=== PATIENT | female | born 1940 | race Caucasian/White ===

== ENCOUNTER 2018-02-10 21:08 | Emergency (ER) | payer MEDICARE ==
[~2018-02-10] VITALS: Ht 157.5 cm; Wt 81.7 kg
[~2018-02-10 21:08] MED LIST: ADULT LOW DOSE81 MG PO; AMBIEN PO; APAP/CODEI12 MG/5 ML GT; ATIVAN0.5 MG PO; ATIVAN1 MG PO; AZITHROMYCIN 2250 MG PO; BENADRYL ALLERG25 MG; C-500500 MG PO; CELEXA 20 MG TA20 M1 PO; CITRATE OF MAG296 ML PO; DOXEPIN 50MG CA50 M1; DOXEPIN 50MG CA50 M1 PO; DOXEPIN 75 MG C75 M1 PO; DOXEPIN HCL100 MG PO; DUONEB 2.5-0.5 M3 ML; DUONEB 2.5-0.5 M3 ML INH; ESTER-C500 M1 PO; FENTANYL PATCH75 MCG TP; FLUOXETINE HCL40 MG PO; GABAPENTIN 100100 MG PO; HYDROCODONE-AP1 EAC6 PO; KEFLEX500 MG PO; LEVAQUIN 500 M500 M2; LEVAQUIN 500 M500 M2 PO; LEVOTHROID50 MCG PO; LEVOTHYROXIN0.025 MG PG; LEVOTHYROXINE0.05 MG PO; LEXAPRO20 MG; LIDOCAINE VISC100 M1 SWISH&SPIT; LOPRESSOR PO; LOSARTAN-HCTZ1 EAC1 PO; MACROBID 100 M100 M1 PO; MACRODANTIN100 MG; MUCINEX600 MG; MYCELEX15 GM; NORCO 5-325 TA1 EAC1 PO; NYSTATIN 1100000 U/M; NYSTATIN 1100000 U/M PO; PHENAZOPYRIDIN200 M2 PO; PREDNISONE 10 M10 MG; PREDNISONE 10 M10 MG PO; PROMETHAZINE/C118 ML PO; PROZAC 20 MG20 M1 PO; PYRIDIUM200 MG PO; VENLAFAXIN75 MG/1 T2; VITAMIN B-12500 MCG; VITAMIN D 5050000 I1 PO; VITAMIN D32000 UNIT PO; XANAX 0.25 MG0.25 MG PO; XANAX 0.5 MG0.5 M1 PO; [UNRECOGNIZED DRUG - REMARK] PO
[2018-02-10] MEDS ORDERED: HYDROCODONE-AP1 EAC6 PO (21:21)
[2018-02-10 21:57] LABS: ABSOLUTE EOSINOPHILS 0.3 thou/uL (0.0-0.7); ABSOLUTE LYMPHOCYTES 1.4 thou/uL (0.8-5.3); ABSOLUTE MONOCYTES 0.7 thou/uL (0.0-1.2); ABSOLUTE NEUTROPHILS 7.3 thou/uL (1.6-8.1); BASOPHILS 0.5 %; EOSINOPHILS 2.8 %; HEMATOCRIT 39.3 % (37.0-47.0); HEMOGLOBIN 13.3 gm/dL (12.0-15.0); LYMPHOCYTES 14.5 %; MCH 32.1 pg (26.0-34.0); MCHC 33.7 g/dL (28.0-37.0); MCV 95.1 fL (80.0-100.0); MONOCYTES 6.9 %; MPV 7.6 fl. (7.2-11.1); NUCLEATED RBCS 0 /100WBC; PLATELET COUNT* 251 thou/uL (150-400); POLYS 75.3 %; RBC 4.13 mil/uL (4.20-5.00); RDW-CV 12.7 % (10.5-14.5); WBC 9.7 thou/uL (4.0-11.0)
[2018-02-10 22:04] LABS: PROTIME 9.8 Seconds (9.20-11.50)
[2018-02-10 22:13] LABS: ANION GAP 7 mmol/L (7-16); BUN 16 mg/dL (7-18); CALCIUM 9.5 mg/dL (8.5-10.1); CHLORIDE 104 mmol/L (98-107); CO2 30 mmol/L (21-32); CREATININE 0.8 mg/dL (0.6-1.3); GLUCOSE 144 mg/dL (70-99); POTASSIUM 3.9 mmol/L (3.5-5.1); SODIUM 141 mmol/L (136-145)
[2018-02-10 22:21] LABS: ALBUMIN 3.6 g/dL (3.4-5.0); ALKALINE PHOSPHATASE 63 U/L (46-116); CK-MB MASS 1.1 ng/mL (<0.5-3.6); NT-PRO BRAIN NAT PEPTIDE 81 pg/mL (<300); SGOT 13 U/L (15-37); SGPT 24 U/L (30-65); TOTAL BILIRUBIN 0.2 mg/dL (<0.1-1.0); TOTAL PROTEIN 6.8 g/dL (6.4-8.2); TROPONIN-I LEVEL <0.06 ng/mL (<0.06)
[2018-02-10 22:47] LABS: INFLUENZA A ANTIGEN None Detected (None Detect); INFLUENZA B ANTIGEN None Detected (None Detect)
[2018-02-10] MEDS ORDERED: AMOXICILLIN 50500 MG PO (23:20)
[2018-02-10] MEDS ORDERED: PROAIR HFA8.5 GM INH (23:20)
[2018-02-10] MEDS ORDERED: PREDNISONE 20 M20 MG PO (23:20)
[2018-02-10 23:34] VITALS: BP 122/63
--- NOTE | 2018-02-11 09:57 | EKG ---
[place] [address] ELECTROCARDIOGRAM REPORT Name: TRENTON CONNER JO [id number] Admission: 02/10/18 Attend Phys: Discharge: 02/10/18 Date of : 44 Report #: [id number] THIS REPORT FOR: //name// [facility] ED Test Date: 2018-02-10 Test Time: 21:40:44 Pat Name: TRENTON CONNER Department: Room: Gender: F Gas Appliance Servicer: TYRONE Yeh : 1940 Requested By: Genaro Florez Order Number: [id number] MD: Abraham Kwon Measurements Intervals [place] Rate: 93 P: 70 ID: 162 QRS: 47 QRSD: 87 T: 244 QT: 379 QTc: 472 Interpretive Statements Sinus rhythm septal q waves Borderline repolarization abnormality Compared to ECG 06/14/2016 13:36:26 septal q waves noted Electronically Signed On 02-11-2018 9:57:37 CDT by Abraham Kwon [email or web address] <ELECTRONICALLY SIGNED> By: Abraham Kwon MD, [facility] 02/11/18 0957 39 39 Abraham Kwon MD, FACC /EPI
== END 2018-02-10 23:35 | disposition home or self-care (01) ==
LOC: M.ERS 21:08
PROVIDERS: Nurse Practitioner Psychiatric/Mental Health
DX: J44.1 Chronic obstructive pulmonary disease with (acute) exacerbation (principal); E03.9 Hypothyroidism, unspecified; I10 Essential (primary) hypertension; Z90.710 Acquired absence of both cervix and uterus; Z98.890 Other specified postprocedural states; Z87.891 Personal history of nicotine dependence

== ENCOUNTER 2018-04-12 19:51 | Emergency (ER) | payer MEDICARE ==
[~2018-04-12] VITALS: Ht 160 cm; Wt 79.4 kg
[~2018-04-12 19:51] MED LIST changes: +AMOXICILLIN 50500 MG PO; +PREDNISONE 20 M20 MG PO; +PROAIR HFA8.5 GM INH
[2018-04-12] MEDS ORDERED: VENTOLIN HFA 1818 GM INH (20:55)
[2018-04-12] MEDS ORDERED: PREDNISONE 20 M20 M1 PO (20:55)
[2018-04-12] MEDS ORDERED: ZPAK PO (20:55)
[2018-04-12 21:26] VITALS: BP 162/88
--- NOTE | 2018-04-13 11:46 | EKG ---
[place] [address] ELECTROCARDIOGRAM REPORT Name: TRENTON CONNER JO Room: [facility]#: [id number] Admission: 04/12/18 Attend Phys: Discharge: 04/12/18 Date of : 44 Report #: [id number] THIS REPORT FOR: //name// [facility] ED Test Date: 2018-04-12 Test Time: 19:58:08 Pat Name: TRENTON CONNER Department: Room: Gender: F Material Control Associate: MARIAM : 1940 Requested By: Rico Martinez Order Number: [id number] MD: Abraham Kwon Measurements Intervals [place] Rate: 82 P: 70 MA: 160 QRS: 53 QRSD: 93 T: 44 QT: 393 QTc: 459 Interpretive Statements Sinus rhythm Minimal ST depression, diffuse leads Baseline wander in lead(s) II Compared to ECG 02/10/2018 21:40:44 no change Electronically Signed On 04-13-2018 11:45:54 CDT by Abraham Kwon [email or web address] <ELECTRONICALLY SIGNED> By: Abraham Kwon MD, [facility] 04/13/18 1145 57 57 Abraham Kwon MD, FAC /EPI
== END 2018-04-12 21:29 | disposition home or self-care (01) ==
LOC: M.ERS 19:51
DX: J44.1 Chronic obstructive pulmonary disease with (acute) exacerbation (principal); J40 Bronchitis, not specified as acute or chronic; I10 Essential (primary) hypertension; E03.9 Hypothyroidism, unspecified; Z90.710 Acquired absence of both cervix and uterus; Z87.891 Personal history of nicotine dependence

== ENCOUNTER 2018-06-11 21:09 | Emergency (ER) | payer MEDICARE ==
[~2018-06-11] VITALS: Ht 160 cm; Wt 79.4 kg
[~2018-06-11 21:09] MED LIST changes: +PREDNISONE 20 M20 M1 PO; +VENTOLIN HFA 1818 GM INH; +ZPAK PO
[2018-06-11 21:55] LABS: ABSOLUTE EOSINOPHILS 0.2 thou/uL (0.0-0.7); ABSOLUTE LYMPHOCYTES 1.4 thou/uL (0.8-5.3); ABSOLUTE MONOCYTES 0.4 thou/uL (0.0-1.2); ABSOLUTE NEUTROPHILS 3.7 thou/uL (1.6-8.1); BASOPHILS 0.7 %; EOSINOPHILS 3.2 %; HEMATOCRIT 39.5 % (37.0-47.0); HEMOGLOBIN 13.4 gm/dL (12.0-15.0); LYMPHOCYTES 24.4 %; MCH 31.9 pg (26.0-34.0); MCHC 33.8 g/dL (28.0-37.0); MCV 94.5 fL (80.0-100.0); MONOCYTES 7.5 %; MPV 7.7 fl. (7.2-11.1); NUCLEATED RBCS 0 /100WBC; PLATELET COUNT* 273 thou/uL (150-400); POLYS 64.2 %; RBC 4.18 mil/uL (4.20-5.00); RDW-CV 12.7 % (10.5-14.5); WBC 5.7 thou/uL (4.0-11.0)
[2018-06-11 22:00] LABS: ANION GAP 7 mmol/L (7-16); BUN 13 mg/dL (7-18); CALCIUM 9.3 mg/dL (8.5-10.1); CHLORIDE 100 mmol/L (98-107); CO2 27 mmol/L (21-32); CREATININE 0.7 mg/dL (0.6-1.3); GLUCOSE 122 mg/dL (70-99); POTASSIUM 3.8 mmol/L (3.5-5.1); SODIUM 134 mmol/L (136-145)
[2018-06-11 22:07] LABS: ALBUMIN 4.1 g/dL (3.4-5.0); ALKALINE PHOSPHATASE 65 U/L (46-116); LIPASE 123 U/L (73-393); SGOT 15 U/L (15-37); SGPT 21 U/L (30-65); TOTAL BILIRUBIN 0.2 mg/dL (<0.1-1.0); TOTAL PROTEIN 7.1 g/dL (6.4-8.2); TROPONIN-I LEVEL <0.06 ng/mL (<0.06)
[2018-06-11] MEDS ORDERED: NORCO 5-325 TA1 EACH PO (22:27)
[2018-06-11] MEDS ORDERED: PREDNISONE50 MG PO (22:27)
[2018-06-11] MEDS ORDERED: FLEXERIL PO (22:27)
[2018-06-11 22:49] VITALS: BP 148/65
--- NOTE | 2018-06-12 10:51 | EKG ---
[place] [address] ELECTROCARDIOGRAM REPORT Name: TRENTON CONNER JO Room: [facility]#: [id number] Admission: 06/11/18 Attend Phys: Discharge: 06/11/18 Date of : 44 Report #: [id number] THIS REPORT FOR: //name// [facility] ED Test Date: 2018-06-11 Test Time: 21:17:31 Pat Name: TRENTON CONNER Department: Room: Gender: F Set Up Mechanic Coating Machines: KARI : 1940 Requested By: Kade Menezes Order Number: [id number] MD: Abraham Kwon Measurements Intervals [place] Rate: 91 P: 72 NM: 150 QRS: 55 QRSD: 91 T: QT: 303 QTc: 373 Interpretive Statements Sinus rhythm Probable left atrial enlargement Nonspecific repol abnormality, diffuse leads Compared to ECG 04/12/2018 19:58:08 no change Electronically Signed On 06-12-2018 10:50:59 CDT by Abraham Kwon [email or web address] <ELECTRONICALLY SIGNED> By: Abraham Kwon MD, [facility] 06/12/18 1050 16 16 Abraham Kwon MD, FACC /EPI
[2018-06-12] MEDS ORDERED: NORCO 5-325 TA1 EACH PO (14:40)
== END 2018-06-11 22:50 | disposition home or self-care (01) ==
LOC: M.ERS 21:09
PROVIDERS: Emergency Medicine Emergency Medical Services
DX: S46.812A Strain of other muscles, fascia and tendons at shoulder and upper arm level, left arm, initial encounter (principal); M54.12 Radiculopathy, cervical region; E03.9 Hypothyroidism, unspecified; I10 Essential (primary) hypertension; J44.9 Chronic obstructive pulmonary disease, unspecified; Z90.710 Acquired absence of both cervix and uterus; Z87.891 Personal history of nicotine dependence; X58.XXXA Exposure to other specified factors, initial encounter; Y93.89 Activity, other specified; Y92.89 Other specified places as the place of occurrence of the external cause; Y99.8 Other external cause status

== ENCOUNTER 2018-06-12 12:16 | Emergency (ER) | payer MEDICARE ==
[~2018-06-12] VITALS: Ht 160 cm; Wt 78.9 kg
[~2018-06-12 12:16] MED LIST changes: +FLEXERIL PO; +NORCO 5-325 TA1 EACH PO; +PREDNISONE50 MG PO
[2018-06-12] MEDS ORDERED: NORCO 5-325 TA1 EACH PO (14:40)
[2018-06-12 14:50] VITALS: BP 167/63
== END 2018-06-12 14:51 | disposition home or self-care (01) ==
LOC: M.ERS 12:16
DX: M54.2 Cervicalgia (principal); M25.512 Pain in left shoulder; E03.9 Hypothyroidism, unspecified; I10 Essential (primary) hypertension; J44.9 Chronic obstructive pulmonary disease, unspecified; Z87.891 Personal history of nicotine dependence; Z90.710 Acquired absence of both cervix and uterus

== ENCOUNTER 2018-06-14 11:52 | Emergency (ER) | payer MEDICARE ==
[~2018-06-14] VITALS: Ht 167.6 cm; Wt 90.7 kg
[2018-06-14] MEDS ORDERED: LIDOCAINE PAIN1 EACH INTRADERM (12:02)
[2018-06-14] MEDS ORDERED: VALIUM5 MG PO (13:17)
[2018-06-14 13:29] VITALS: BP 135/99
== END 2018-06-14 13:30 | disposition home or self-care (01) ==
LOC: M.ERS 11:52
DX: G89.29 Other chronic pain (principal); M25.512 Pain in left shoulder; I10 Essential (primary) hypertension; E03.9 Hypothyroidism, unspecified; J44.9 Chronic obstructive pulmonary disease, unspecified; Z90.710 Acquired absence of both cervix and uterus; Z98.890 Other specified postprocedural states; Z87.891 Personal history of nicotine dependence

== ENCOUNTER 2018-07-08 13:33 | Emergency (ER) | payer MEDICARE ==
[~2018-07-08] VITALS: Ht 160 cm; Wt 77.1 kg
[~2018-07-08 13:33] MED LIST changes: +LIDOCAINE PAIN1 EACH INTRADERM; +VALIUM5 MG PO
[2018-07-08 13:39] VITALS: BP 130/70
[2018-07-08] MEDS ORDERED: VALIUM5 MG PO (14:02)
== END 2018-07-08 14:14 | disposition home or self-care (01) ==
LOC: M.ERS 13:33
DX: G89.29 Other chronic pain (principal); M54.2 Cervicalgia; Z76.0 Encounter for issue of repeat prescription; J44.9 Chronic obstructive pulmonary disease, unspecified; E03.9 Hypothyroidism, unspecified; Z87.891 Personal history of nicotine dependence; Z90.710 Acquired absence of both cervix and uterus

== ENCOUNTER 2018-11-21 08:55 | Inpatient (IN) | payer MEDICARE ==
[~2018-11-21] VITALS: Ht 160 cm; Wt 78.5 kg
[2018-11-21 09:01] VITALS: BP 149/70
[2018-11-21 09:18] LABS: BE 2.3 mmol/L (-2 to +3); HCO3 26.1 mmol/L (22.0-26.0); PCO2 37.7 mmHg (35.0-45.0); PO2 70.6 mmHg (75.0-100.0); pH 7.458 (7.340-7.450)
[2018-11-21] MEDS ORDERED: NORCO 5-325 TA1 EACH PO (09:20)
[2018-11-21] MEDS ORDERED: MEDROLDOSEPACK PO (09:20)
[2018-11-21 09:25] LABS: ABSOLUTE LYMPHOCYTES 1.1 thou/uL (0.8-5.3); ABSOLUTE MONOCYTES 1.1 thou/uL (0.0-1.2); BASOPHILS 0.4 %; EOSINOPHILS 0.1 %; HEMATOCRIT 38.2 % (37.0-47.0); HEMOGLOBIN 12.9 gm/dL (12.0-15.0); MCH 31.9 pg (26.0-34.0); MCHC 33.7 g/dL (28.0-37.0); MCV 94.6 fL (80.0-100.0); MPV 7.6 fl. (7.2-11.1); NUCLEATED RBCS 0 /100WBC; PLATELET COUNT* 285 thou/uL (150-400); POLYS 79.5 %; RBC 4.04 mil/uL (4.20-5.00); RDW-CV 12.5 % (10.5-14.5); WBC 11.3 thou/uL (4.0-11.0)
[2018-11-21 09:44] LABS: APTT 27.5 Seconds (25.0-31.3); INR 0.9; PROTIME 9.6 Seconds (9.20-11.50)
[2018-11-21 09:51] LABS: ANION GAP 10 mmol/L (7-16); BUN 15 mg/dL (7-18); CALCIUM 8.3 mg/dL (8.5-10.1); CHLORIDE 101 mmol/L (98-107); CO2 27 mmol/L (21-32); CREATININE 0.8 mg/dL (0.6-1.3); GLUCOSE 107 mg/dL (70-99); SODIUM 138 mmol/L (136-145)
[2018-11-21 09:55] LABS: POTASSIUM 2.9 mmol/L (3.5-5.1)
[2018-11-21 09:56] LABS: ALBUMIN 3.7 g/dL (3.4-5.0); ALKALINE PHOSPHATASE 70 U/L (46-116); NT-PRO BRAIN NAT PEPTIDE 349 pg/mL (<300); SGOT 12 U/L (15-37); SGPT 17 U/L (30-65); TOTAL BILIRUBIN 0.4 mg/dL (<0.1-1.0); TOTAL PROTEIN 7.4 g/dL (6.4-8.2); TROPONIN-I LEVEL <0.06 ng/mL (<0.06)
[2018-11-21 10:05] LABS: INFLUENZA A ANTIGEN None Detected (None Detect); INFLUENZA B ANTIGEN None Detected (None Detect)
[2018-11-21 12:00] VITALS: BP 135/66
[2018-11-21 12:14] VITALS: BP 138/70
[2018-11-21 16:02] VITALS: BP 135/67
--- NOTE | 2018-11-21 17:37 | NUR ---
PATINET RESTING IN BED WITH 2L PER NASAL CAULA FOR SUPPLEMENTAL OXYGENTATION. LUNG SOUNDS COARSE AND WHEEZY. PATINET REPORTING EASE IN RESPIRATIONS. MED REC COMPLETD AND ORDERS RECEIVED FOR PATIENT CARE. UP AD ANDREA, AOX4. HOURLY ROUNDING COMPLETD FOR PATINET SAFETY.
[2018-11-21 20:00] VITALS: BP 142/71
[2018-11-22] VITALS: BP 142/70
[2018-11-22 04:00] VITALS: BP 154/79
[2018-11-22 05:25] LABS: HEMATOCRIT 37.2 % (37.0-47.0); HEMOGLOBIN 12.2 gm/dL (12.0-15.0); MCH 31.5 pg (26.0-34.0); MCHC 32.8 g/dL (28.0-37.0); MCV 95.8 fL (80.0-100.0); MPV 8.1 fl. (7.2-11.1); NUCLEATED RBCS 0 /100WBC; PLATELET COUNT* 292 thou/uL (150-400); RBC 3.88 mil/uL (4.20-5.00); RDW-CV 12.7 % (10.5-14.5); WBC 13.8 thou/uL (4.0-11.0)
--- NOTE | 2018-11-22 05:39 | NUR ---
ASSUMED CARE OF PT AFTER REPORT AT 1930. PT A&OX4. VSS. PHYSICAL ASSESSMENT COMPLETED AND CHARTED. PT ON O2 AT 2L NC WITH 93% O2 SAT. PT TRACING SR PVC ON TELE. PT UP ADLIB TO RESTROOM. DENIES ANY PAIN OR DISCOMFORT. PT RESTED WELL ON BED. HOURLY ROUNDING OBSERVED. HS REST & SAFETY GOALS ACHIEVED. CALL LIGHT WITHIN REACH. BED IN LOW POSITION.
[2018-11-22 06:01] LABS: CALCIUM 9.8 mg/dL (8.5-10.1); CREATININE 0.7 mg/dL (0.6-1.3); POTASSIUM 4.4 mmol/L (3.5-5.1)
[2018-11-22 06:05] LABS: BE 0.8 mmol/L (-2 to +3); HCO3 26.6 mmol/L (22.0-26.0); PO2 76.2 mmHg (75.0-100.0); pH 7.371 (7.340-7.450)
[2018-11-22 06:37] LABS: ABSOLUTE LYMPHOCYTES 0.6 thou/uL (0.8-5.3); ABSOLUTE MONOCYTES 0.8 thou/uL (0.0-1.2); ABSOLUTE NEUTROPHILS 12.4 thou/uL (1.6-8.1); ANISOCYTOSIS 1+; PLATELET ESTIMATE ADEQUATE; POIKILOCYTOSIS 1+
[2018-11-22 07:49] VITALS: BP 150/70
[2018-11-22 07:49] LABS: URINE BILIRUBIN NEGATIVE (Negative); URINE BLOOD NEGATIVE (Negative); URINE CLARITY CLEAR; URINE COLOR YELLOW; URINE GLUCOSE-RANDOM NEGATIVE (Negative); URINE KETONES NEGATIVE (Negative); URINE LEUKOCYTES 1+ (Negative); URINE NITRITE NEGATIVE (Negative); URINE PROTEIN NEGATIVE (Negative); URINE UROBILINOGEN 0.2 E.U./dl (0.2-1.0)
[2018-11-22 07:58] LABS: SQUAMOUS >10 Many /LPF (0-3)
[2018-11-22 07:59] LABS: MUCUS 0-3 Light strn/LPF (None Seen); URINE RBC None Seen /HPF (0-2); URINE WBC 0-5 Rare /HPF (0-5)
[2018-11-22 08:00] LABS: CASTS None Seen /LPF (None Seen); CRYSTALS None Seen /LPF (None Seen)
--- NOTE | 2018-11-22 11:17 | EKG ---
[place] [address] ELECTROCARDIOGRAM REPORT Name: TRENTON CONNER JO Room: [address] ADM IN M.R.#: [id number] Admission: 11/21/18 Attend Phys: Evangelist Vicente MD Discharge: Date of : 44 Report #: [id number] THIS REPORT FOR: //name// [facility] ED Test Date: 2018-11-21 Test Time: 09:07:12 Pat Name: TRENTNO CONNER Department: Room: [facility] Gender: F Cash Shortage Investigator: : 1940 Requested By: Anil High Order Number: [id number] MD: Jonathan Neri Measurements Intervals [place] Rate: 97 P: 70 AR: 147 QRS: 51 QRSD: 95 T: -71 QT: 306 QTc: 389 Interpretive Statements Sinus rhythm Probable left atrial enlargement Nonspecific repol abnormality, diffuse leads Compared to ECG 06/11/2018 21:17:31 No significant changes Electronically Signed On 11-22-2018 11:17:15 PRICING CONSULTANT by Jonathan Neri [email or web address] <ELECTRONICALLY SIGNED> By: Jonathan Neri MD, [facility] 11/22/18 1117 0907 0907 Jonathan Neri MD, [facility] /EPI
--- NOTE | 2018-11-22 15:49 | NUR ---
PATIENT RESTING IN RROM. 2L PER NASAL CANULA FOR SUPPLEMENTAL OXYGENATION. LUNG SOUNDS COARSE AND WHEEZY. PATIENT IS AOX4 AND APPROPRIATE. HOURLY ROUNDING COMPLETD FOR PATIENT SAFETY AND PATIENT IS PROGRESSING TOWARDS GOALS.
[2018-11-22 16:00] VITALS: BP 141/66
[2018-11-22 20:00] VITALS: BP 153/79
[2018-11-23] VITALS: BP 141/64
[2018-11-23 04:00] VITALS: BP 123/66
--- NOTE | 2018-11-23 04:22 | NUR ---
ASSUMED CARE OF PT AFTER REPORT AT 1930. PT A&OX4. VSS. PHYSICAL ASSESSMENT COMPLETED AND CHARTED. PT ON RA WITH 97% O2 SAT. PT TRACING SR/ST ON TELE. PT UP ADLIB TO RESTROOM. DENIES ANY PAIN OR DISCOMFORT. HOURLY ROUNDING OBSERVED. CALL LIGHT WITHIN REACH.
[2018-11-23 04:43] LABS: ABSOLUTE LYMPHOCYTES 0.8 thou/uL (0.8-5.3); ABSOLUTE MONOCYTES 0.7 thou/uL (0.0-1.2); ABSOLUTE NEUTROPHILS 11.9 thou/uL (1.6-8.1); BASOPHILS 0.2 %; HEMATOCRIT 35.2 % (37.0-47.0); HEMOGLOBIN 11.7 gm/dL (12.0-15.0); LYMPHOCYTES 6.1 %; MCH 31.3 pg (26.0-34.0); MCHC 33.1 g/dL (28.0-37.0); MCV 94.5 fL (80.0-100.0); MONOCYTES 5.6 %; MPV 7.5 fl. (7.2-11.1); NUCLEATED RBCS 0 /100WBC; PLATELET COUNT* 323 thou/uL (150-400); POLYS 88.1 %; RBC 3.73 mil/uL (4.20-5.00); RDW-CV 12.6 % (10.5-14.5); WBC 13.5 thou/uL (4.0-11.0)
[2018-11-23 05:37] LABS: ALBUMIN 3.3 g/dL (3.4-5.0); CALCIUM 9.8 mg/dL (8.5-10.1); CREATININE 0.8 mg/dL (0.6-1.3); POTASSIUM 3.6 mmol/L (3.5-5.1); TOTAL BILIRUBIN 0.1 mg/dL (<0.1-1.0); TOTAL PROTEIN 6.9 g/dL (6.4-8.2)
[2018-11-23 08:15] VITALS: BP 150/72
[2018-11-23 12:00] VITALS: BP 143/64
--- NOTE | 2018-11-23 13:11 | NUR ---
Pt is A&O. Resides at home with her . Normally independent. No DME. Hx of HH, does not recall the name of the agency. No hx of skilled. Goal is home at dc. Following for home o2 needs. Supportive family that is involved in POC.
[2018-11-23 20:00] VITALS: BP 159/78
[2018-11-24 04:00] VITALS: BP 158/69
--- NOTE | 2018-11-24 04:30 | NUR ---
ASSUMED CARE OF PT AFTER REPORT AT 1930. PT A&OX4. VSS. PHYSICAL ASSESSMENT COMPLETED AND CHARTED. PT ON RA WITH 94% O2 SAT. PT ON MEDSURG STATUS. PT UPADLIB TO RESTROOM. DENIES PAIN OR SOA. PT RESTED WELL ON BED. HOURLY ROUNDING OBSERVED. CALL LIGHT WITHIN REACH. BED IN LOW POSITION.
[2018-11-24 07:35] VITALS: BP 105/79
--- NOTE | 2018-11-24 09:10 | NUR ---
PT LOST IV ACCESS THIS MORNING. DR SANTIAGO NOTIFIED AND WILL WAIT TO SEE IF SHE NEEDS NEW ACCESS OBTAINED OR IF HER MEDICATIONS CAN BE CHANGED. WILL CONTINUE TO ASSESS AND MONITOR
[2018-11-24] MEDS ORDERED: PROTONIX40 M2 PO (10:36)
[2018-11-24 10:39] VITALS: BP 105/79
--- NOTE | 2018-11-24 10:57 | NUR ---
PT AND FAMILY VERBALIZED UNDERSTANDING TO DC INSTRUCTIONS AT THIS TIME. VSS AND NO C/O PAIN OR SOA AT THIS TIME. PT PROVIDED WITH 4 RX AT TIME OF DC. PT TO BE TAKEN OUT OF HOSPITAL WITH HOSPITAL STAFF VIA WC AT THIS TIME.
== END 2018-11-24 10:57 | disposition home or self-care (01) | DRG 177 ==
LOC: M.ERS 08:55 → M.TBA-ER 10:11 → M.2W 10:11
PROVIDERS: Emergency Medicine; ADMIT Internal Medicine
DX: J15.6 Pneumonia due to other Gram-negative bacteria (principal); J96.01 Acute respiratory failure with hypoxia; J44.0 Chronic obstructive pulmonary disease with (acute) lower respiratory infection; J44.1 Chronic obstructive pulmonary disease with (acute) exacerbation; R65.10 Systemic inflammatory response syndrome (SIRS) of non-infectious origin without acute organ dysfunction; I10 Essential (primary) hypertension; E03.9 Hypothyroidism, unspecified; J98.01 Acute bronchospasm; E87.6 Hypokalemia; Z98.891 History of uterine scar from previous surgery; Z90.710 Acquired absence of both cervix and uterus; Z87.891 Personal history of nicotine dependence; Z79.899 Other long term (current) drug therapy; Z82.49 Family history of ischemic heart disease and other diseases of the circulatory system

== ENCOUNTER 2018-12-08 22:12 | Inpatient (IN) | payer MEDICARE ==
[~2018-12-08] VITALS: Ht 160 cm; Wt 77.4 kg
[~2018-12-08 22:12] MED LIST changes: +MEDROLDOSEPACK PO; +PROTONIX40 M2 PO
[2018-12-08 22:18] VITALS: BP 178/84
[2018-12-08] MEDS ORDERED: BACTRIM DS TAB1 EACH PO (22:23)
[2018-12-08 22:44] LABS: ABSOLUTE BASOPHILS 0.1 thou/uL (0.0-0.2); ABSOLUTE EOSINOPHILS 0.1 thou/uL (0.0-0.7); ABSOLUTE LYMPHOCYTES 1.2 thou/uL (0.8-5.3); ABSOLUTE MONOCYTES 0.6 thou/uL (0.0-1.2); ABSOLUTE NEUTROPHILS 5.2 thou/uL (1.6-8.1); BASOPHILS 1.4 %; EOSINOPHILS 1.7 %; HEMATOCRIT 38.9 % (37.0-47.0); LYMPHOCYTES 16.1 %; MCH 31.7 pg (26.0-34.0); MCHC 33.6 g/dL (28.0-37.0); MCV 94.4 fL (80.0-100.0); MONOCYTES 8.8 %; MPV 7.8 fl. (7.2-11.1); NUCLEATED RBCS 0 /100WBC; PLATELET COUNT* 314 thou/uL (150-400); RBC 4.12 mil/uL (4.20-5.00); RDW-CV 12.8 % (10.5-14.5); WBC 7.2 thou/uL (4.0-11.0)
[2018-12-08 22:53] LABS: CALCIUM 9.6 mg/dL (8.5-10.1); POTASSIUM 4.1 mmol/L (3.5-5.1)
[2018-12-08 22:56] LABS: INR 0.9; PROTIME 9.4 Seconds (9.20-11.50)
[2018-12-08 23:03] LABS: ALBUMIN 3.9 g/dL (3.4-5.0); TOTAL BILIRUBIN 0.3 mg/dL (<0.1-1.0); TOTAL PROTEIN 7.4 g/dL (6.4-8.2); TROPONIN-I LEVEL 0.18 ng/mL (<0.06)
[2018-12-08 23:12] LABS: BE 0.5 mmol/L (-2 to +3); PCO2 26.8 mmHg (35.0-45.0); PO2 76.5 mmHg (75.0-100.0); pH 7.531 (7.340-7.450)
[2018-12-09] VITALS (20 sets, daily range): BP systolic 116–162; BP diastolic 54–86
[2018-12-09 07:11] LABS: URINE BILIRUBIN NEGATIVE (Negative); URINE BLOOD NEGATIVE (Negative); URINE CLARITY CLEAR; URINE COLOR YELLOW; URINE GLUCOSE-RANDOM NEGATIVE (Negative); URINE KETONES NEGATIVE (Negative); URINE LEUKOCYTES-REFLEX NEGATIVE (Negative); URINE NITRITE-REFLEX NEGATIVE (Negative); URINE PROTEIN NEGATIVE (Negative); URINE UROBILINOGEN 0.2 E.U./dl (0.2-1.0)
--- NOTE | 2018-12-09 18:05 | EKG ---
[place] [address] ELECTROCARDIOGRAM REPORT Name: UBALDOTRENTON Room: [address] ADM IN M.R.#: [id number] Admission: 12/09/18 Attend Phys: Evangelist Vicente MD Discharge: Date of : 44 Report #: [id number] THIS REPORT FOR: //name// [facility] ED Test Date: 2018-12-08 Test Time: 22:18:02 Pat Name: TRENTON CONNER Department: Room: [facility] Gender: F Sales Order Processor: Ruba GRAF : 1940 Requested By: Karie Jones Order Number: [id number] MD: Reymundo Franz Measurements Intervals [place] Rate: 93 P: 76 CT: 148 QRS: 44 QRSD: 96 T: 78 QT: 366 QTc: 456 Interpretive Statements Sinus rhythm Repol abnrm suggests ischemia, lateral leads Baseline wander in lead(s) V4 Compared to ECG 11/21/2018 09:07:12 Possible ischemia now present Electronically Signed On 12-09-2018 18:05:37 FIELD WORKER by Reymundo Franz [email or web address] <ELECTRONICALLY SIGNED> By: Reymundo Franz MD, FACC 12/09/18 1805 2218 2218 Reymundo Franz MD, [facility] /EPI
--- NOTE | 2018-12-09 18:06 | EKG ---
[place] [address] ELECTROCARDIOGRAM REPORT Name: UBALDOLACEY Room: [address] ADM IN M.R.#: [id number] Admission: 12/09/18 Attend Phys: Evangelist Vicente MD Discharge: Date of : 44 Report #: [id number] THIS REPORT FOR: //name// [facility] ED Test Date: 2018-12-09 Test Time: 01:28:14 Pat Name: TRENTON CONNER Department: Room: [address] Gender: F Information Assurance: LUCIA : 1940 Requested By: Karie Jones Order Number: [id number] MD: Reymundo Franz Measurements Intervals [place] Rate: 93 P: 52 UT: 137 QRS: 37 QRSD: 89 T: -30 QT: 351 QTc: 437 Interpretive Statements Sinus tachycardia Multiple premature complexes, vent & supraven Borderline repolarization abnormality Compared to ECG 11/21/2018 09:07:12 Sinus rhythm no longer present Electronically Signed On 12-09-2018 18:05:57 CORE WINDER MACHINE OPERATOR by Reymundo Franz [email or web address] <ELECTRONICALLY SIGNED> By: Reymundo Franz MD, FACC 12/09/18 1805 0128 0128 Reymundo Franz MD, FAC /EPI
[2018-12-10 04:00] VITALS: BP 127/64
[2018-12-10 05:21] LABS: HEMATOCRIT 33.9 % (37.0-47.0); HEMOGLOBIN 11.4 gm/dL (12.0-15.0); MCH 32.3 pg (26.0-34.0); MCHC 33.6 g/dL (28.0-37.0); MPV 8.1 fl. (7.2-11.1); RBC 3.53 mil/uL (4.20-5.00); WBC 6.6 thou/uL (4.0-11.0)
[2018-12-10 05:36] LABS: ALBUMIN 3.3 g/dL (3.4-5.0); ALKALINE PHOSPHATASE 51 U/L (46-116); ANION GAP 13 mmol/L (7-16); BUN 11 mg/dL (7-18); CALCIUM 9.3 mg/dL (8.5-10.1); CHLORIDE 102 mmol/L (98-107); CHOLESTEROL 264 mg/dL (<200); CO2 22 mmol/L (21-32); CREATININE 0.9 mg/dL (0.6-1.3); GLUCOSE 195 mg/dL (70-99); HDL CHOLESTEROL 81 mg/dL (>40); LDL CHOLESTEROL 167 mg/dL (<100); POTASSIUM 3.6 mmol/L (3.5-5.1); SGOT 29 U/L (15-37); SGPT 23 U/L (30-65); SODIUM 137 mmol/L (136-145); TC:HDL 3.3 Ratio (Not establshd); TOTAL BILIRUBIN 0.3 mg/dL (<0.1-1.0); TOTAL PROTEIN 6.7 g/dL (6.4-8.2); TRIGLYCERIDE 83 mg/dL (<150); VLDL 17 mg/dL (<40)
[2018-12-10 05:41] LABS: SERUM ASSESSMENT Clear
[2018-12-10 05:42] LABS: TROPONIN-I LEVEL 2.03 ng/mL (<0.06)
[2018-12-10 08:20] VITALS: BP 142/62
[2018-12-10 08:50] VITALS: BP 142/62
--- NOTE | 2018-12-10 10:24 | EKG ---
[place] [address] ELECTROCARDIOGRAM REPORT Name: UBALDOTRENTON Room: [address] ADM IN M.R.#: [id number] Admission: 12/09/18 Attend Phys: Evangelist Vicente MD Discharge: Date of : 44 Report #: [id number] THIS REPORT FOR: //name// [facility] Test Date: 2018-12-10 Test Time: 03:21:58 Pat Name: TRENTON CONNER Department: Room: [address] Gender: F Hobbies And Crafts Sales Representative: NARCISO : 1940 Requested By: Jonathan Neri Order Number: [id number] MD: Kiko Vaughn Measurements Intervals [place] Rate: 103 P: 69 KS: 156 QRS: 44 QRSD: 92 T: -84 QT: 374 QTc: 490 Interpretive Statements Sinus tachycardia Borderline repol abnormality, diffuse leads Borderline prolonged QT interval Compared to ECG 12/09/2018 01:28:14 No significant changes Electronically Signed On 12-10-2018 10:24:25 SENIOR INSTRUMENTATION ENGINEER by Kiko Vaughn [email or web address] <ELECTRONICALLY SIGNED> By: Kiko Vaughn MD, FACC 12/10/18 1024 0321 0321 Kiko Vaughn MD, [facility] /EPI
[2018-12-10] MEDS ORDERED: NITROGLYCERIN0.4 MG SUBLING (11:17)
[2018-12-10] MEDS ORDERED: BRILINTA90 MG PO (11:17)
[2018-12-10] MEDS ORDERED: LIPITOR 20 MG T20 M1 PO (11:17)
[2018-12-10] MEDS ORDERED: CARVEDILOL3.125 MG PO (11:17)
[2018-12-10] MEDS ORDERED: ASPIR 8181 MG PO (11:17)
[2018-12-10 11:55] VITALS: BP 142/62
[2018-12-10 13:03] VITALS: BP 142/62
[2018-12-10 13:10] VITALS: BP 142/62
--- NOTE | 2018-12-10 13:48 | CARD ---
[address] [address] CARDIAC CATH REPORT Name: UBALDOTRENTON CHRISTY JO Room: [address] IN M.R.#: [id number] Admission: 12/09/18 Attend Phys: Evangelist Vicente MD Discharge: 12/10/18 Date of : 44 Report #: [id number] THIS REPORT FOR: //name// APPROVED REPORT Study performed: 12/09/2018 15:22:35 Patient Details The patient is a 78 year-old female Event Personnel Jonathan Neri Washroom Attendant, Adrienne Chamberlain RN Sprinkling System Irrigator, Ayan Rm (R) Scrub, Hemanth Garland Scrub Procedures Performed Heart catheterization selective coronary artery arteriography and percutaneous coronary intervention to the right coronary artery Indication Non-STEMI Risk Factors Hypercholesterolemia, Hypertension Admission/Lab Medications/Medications given during procedure Aspirin, Platelet Aff. Inhib. Procedure Narrative The patient was brought electively to the Cardiac Catheterization Laboratory and was prepped and draped in a sterile manner. The right femoral was infiltrated with 2% Lidocaine subcutaneous anesthesia. A 6fr Ultimum Sheath sheath was inserted into the . Coronary angiography was performed using coronary diagnostic catheters. The right coronary system was accessed and visualized with a JL4 catheter. The left coronary system was accessed and visualized with a JR4 catheter. The left ventricle was accessed and visualized with a Straight PIG catheter. Left ventricular/Aortic Valve gradient assessed via catheter pullback. Pre-demployment femoral angiogram was performed . Closure device was deployed with a 6 Fr Angioseal. The patient tolerated the procedure well and there were no complications associated with the procedure. There was no hematoma. Intraoperative Conscious Sedation Fentanyl 100 mcg Vers[place] 4.0 [place] [address] CARDIAC CATH REPORT Name: TRENTON CONNER JO Room: [address]#: [id number] Admission: 12/09/18 Attend Phys: Evangelist Vicente MD Discharge: 12/10/18 Date of : 42 Report #: [id number] Fluoro Time: 27.7 minutes Dose: DAP [id number] cGycm2 117 mGy Contrast Type and Amount: Isovue 400 ml Coronary Angiography The patient's coronary anatomy is co- dominant. Diagnostic Cath Left Main 0% narrowing LAD 30% proximal LAD narrowing Circumflex 20% mid circumflex narrowing Right Coronary 90% narrowing of the midportion of this codominant right coronary artery with local thrombus at the site Left Ventriculography Left Ventriculography was not performed. IVUS Intravascular Ultrasound was performed on the mid right coronary artery vessel. Hemodynamics The aortic pressure is 169/71 mmHg with a mean of 94 mmHg. The left ventricular pressure is 161/5 mmHg with a mean of mmHg. The left ventricular end diastolic pressure is 15 mmHg. There was no gradient across the aortic valve upon pullback. PCI Technique Lesion Anticoagulation was achieved with Heparin. Patient was preloaded with Heparin IA 8000 units. Percutaneous coronary intervention was performed on the mid right coronary artery. The lesion stenosis prior to intervention was 90% with YOLIS 2-3 flow. A 6FR 3DRC SH Guide Catheter was used to engage the ostium. A [place]: PinkUP Flex 300cm Interventional Guidewire was used to cross the lesion. BALLOON DILATION A Balloon catheter Mini Trek RX 1.5 X 12 was inserted and inflated up to 14.00atm for 9seconds. STENT DEPLOYMENT A stent Tez RX Stent 2.0X12mm, 2.0x8 tez was inserted and inflated up to 14.00atm for 14seconds. Final angiography reveals 0 % stenosis with [place] 3 [place] [address] CARDIAC CATH REPORT Name: TRENTON CONNER Room: [address]#: [id number] Admission: 12/09/18 Attend Phys: Evangelist Vicente MD Discharge: 12/10/18 Date of : 44 Report #: [id number] PCI Technique Lesion Percutaneous coronary intervention was performed on the mid right coronary artery. STENT DEPLOYMENT A drug-eluting stent Tez RX Stent 2.0X8mm was inserted and inflated up to 12.00atm for 7seconds. Conclusion #1 coronary artery disease characterized by the following: A 30% mid LAD narrowing B 20% narrowing of the midportion of the codominant circumflex C modest sized codominant right coronary with 90% mid vessel stenosis and local thrombus at the site #2 moderate systemic systolic hypertension #3 successful percutaneous coronary intervention with deployment sequential drug-eluting stents at the site of 90% mid right coronary stenosis with 0% residual narrowing no residual thrombus and YOLIS-3 flow to the distal vessel Recommendations Cardiac Risk Reduction Program Aggressive Medical Therapy Medications Administered Aspirin (any) Ticagrelor Diagnostic Cath Approved by: Jonathan Neri MD Date/Time: 12/10/2018 13:47:06 <ELECTRONICALLY SIGNED> By: Jonathan Neri MD, [facility] 12/10/18 1347 1347 1347Jonathan Neri MD, FACC /INF
== END 2018-12-10 13:40 | disposition home or self-care (01) | DRG 247 ==
LOC: M.ERS 22:12 → M.TBA-ER 12-09 00:51 → M.2W 12-09 00:51
PROVIDERS: Internal Medicine; Personal Emergency Response Attendant; ADMIT Internal Medicine
PROC: 4A023N7 Measurement of Cardiac Sampling and Pressure, Left Heart, Percutaneous Approach (ICD-10-PCS; principal; 2018-12-09)
PROC: B41JYZZ Fluoroscopy of Other Lower Arteries using Other Contrast (ICD-10-PCS; principal; 2018-12-09)
PROC: 027034Z Dilation of Coronary Artery, One Artery with Drug-eluting Intraluminal Device, Percutaneous Approach (ICD-10-PCS; principal; 2018-12-09)
PROC: B211YZZ Fluoroscopy of Multiple Coronary Arteries using Other Contrast (ICD-10-PCS; principal; 2018-12-09)
DX: I21.4 Non-ST elevation (NSTEMI) myocardial infarction (principal); E03.9 Hypothyroidism, unspecified; I10 Essential (primary) hypertension; R73.9 Hyperglycemia, unspecified; E78.5 Hyperlipidemia, unspecified; J44.9 Chronic obstructive pulmonary disease, unspecified; Z87.891 Personal history of nicotine dependence; Z82.49 Family history of ischemic heart disease and other diseases of the circulatory system; Z90.710 Acquired absence of both cervix and uterus; Z79.899 Other long term (current) drug therapy

== ENCOUNTER 2019-03-13 13:13 | Observation (INO) | payer MEDICARE ==
[~2019-03-13] VITALS: Ht 160 cm; Wt 79.4 kg
[~2019-03-13 13:13] MED LIST changes: +ASPIR 8181 MG PO; +BACTRIM DS TAB1 EACH PO; +BRILINTA90 MG PO; +CARVEDILOL3.125 MG PO; +LIPITOR 20 MG T20 M1 PO; +NITROGLYCERIN0.4 MG SUBLING; +PROTONIX40 M1 PO; +SINGULAIR 10 MG10 M1 PO
[2019-03-13 13:15] VITALS: BP 105/56
[2019-03-13] MEDS ORDERED: PLAVIX 75 MG TA75 M1 PO (13:22)
[2019-03-13 13:32] LABS: ABSOLUTE BASOPHILS 0.1 thou/uL (0.0-0.2); ABSOLUTE EOSINOPHILS 0.3 thou/uL (0.0-0.7); ABSOLUTE LYMPHOCYTES 1.2 thou/uL (0.8-5.3); ABSOLUTE MONOCYTES 0.5 thou/uL (0.0-1.2); ABSOLUTE NEUTROPHILS 3.8 thou/uL (1.6-8.1); BASOPHILS 1.2 %; EOSINOPHILS 5.2 %; HEMOGLOBIN 10.4 gm/dL (12.0-15.0); LYMPHOCYTES 21.2 %; MCH 30.4 pg (26.0-34.0); MCHC 33.4 g/dL (28.0-37.0); MCV 90.9 fL (80.0-100.0); MONOCYTES 8.2 %; MPV 8.1 fl. (7.2-11.1); NUCLEATED RBCS 0 /100WBC; PLATELET COUNT* 312 thou/uL (150-400); POLYS 64.2 %; RBC 3.42 mil/uL (4.20-5.00); WBC 5.9 thou/uL (4.0-11.0)
[2019-03-13 13:45] LABS: APTT 26.1 Seconds (25.0-31.3); PROTIME 10.3 Seconds (9.20-11.50)
[2019-03-13 13:53] LABS: ANION GAP 10 mmol/L (7-16); BUN 18 mg/dL (7-18); CALCIUM 8.6 mg/dL (8.5-10.1); CHLORIDE 101 mmol/L (98-107); CO2 26 mmol/L (21-32); CREATININE 0.8 mg/dL (0.6-1.3); GLUCOSE 121 mg/dL (70-99); POTASSIUM 4.1 mmol/L (3.5-5.1); SODIUM 137 mmol/L (136-145); TROPONIN-I LEVEL <0.06 ng/mL (<0.06)
[2019-03-13 13:56] LABS: ALBUMIN 3.6 g/dL (3.4-5.0); ALKALINE PHOSPHATASE 71 U/L (46-116); LIPASE 154 U/L (73-393); MAGNESIUM 1.8 mg/dL (1.8-2.4); NT-PRO BRAIN NAT PEPTIDE 110 pg/mL (<300); SGOT 42 U/L (15-37); SGPT 30 U/L (30-65); TOTAL BILIRUBIN 0.3 mg/dL (<0.1-1.0); TOTAL PROTEIN 6.5 g/dL (6.4-8.2)
[2019-03-13 16:05] VITALS: BP 105/56
[2019-03-13 16:30] VITALS: BP 129/58
[2019-03-13 21:30] VITALS: BP 104/63; BP 132/64
[2019-03-14 00:12] VITALS: BP 88/36
[2019-03-14 00:58] VITALS: BP 124/62
[2019-03-14 04:00] VITALS: BP 120/54
[2019-03-14 05:18] LABS: CHOLESTEROL 160 mg/dL (<200); HDL CHOLESTEROL 66 mg/dL (>40); LDL CHOLESTEROL 77 mg/dL (<100); TC:HDL 2.4 Ratio (Not establshd); TRIGLYCERIDE 86 mg/dL (<150); VLDL 17 mg/dL (<40)
[2019-03-14 06:02] LABS: SERUM ASSESSMENT CLEAR
[2019-03-14] MEDS ORDERED: PEPCID20 MG PO (09:35)
[2019-03-14 11:34] VITALS: BP 140/59
--- NOTE | 2019-03-14 12:06 | EKG ---
[place] [address] ELECTROCARDIOGRAM REPORT Name: TRENTON CONNER JO Room: [address] MR.#: [id number] Admission: 03/13/19 Attend Phys: Bruce Nova MD Discharge: 03/14/19 Date of : 44 Report #: [id number] THIS REPORT FOR: //name// [facility] ED Test Date: 2019-03-13 Test Time: 13:16:31 Pat Name: TRENTON CONNER Department: Room: [facility] Gender: F Training Mgr: FLORIAN : 1940 Requested By: Rico Martinez Order Number: [id number] MD: Reymundo Franz Measurements Intervals [place] Rate: 81 P: 42 ID: 139 QRS: 25 QRSD: 142 T: 16 QT: 402 QTc: 467 Interpretive Statements Sinus rhythm Right bundle branch block Compared to ECG 01/14/2019 15:48:20 Right bundle-branch block now present Electronically Signed On 03-14-2019 12:06:51 CDT by Reymundo Franz [email or web address] <ELECTRONICALLY SIGNED> By: Reymundo Franz MD, FAC 03/14/19 1206 1316 1316 Reymundo Franz MD, [facility] /EPI
--- NOTE | 2019-03-15 08:58 | CON ---
[address] [address] CONSULTATION Name: TRENTON CONNER Room: [address] Marcell Cason#: [id number] Admission: 03/13/19 Attend Phys: Bruce Nova MD Discharge: 03/14/19 Date of : 42 Report #: [id number] THIS REPORT FOR: //name// CC: Bruce Castillo INDICATION: Chest pain. HISTORY OF PRESENT ILLNESS: The patient is a very pleasant 79-year-old white female with history of percutaneous coronary intervention to the right coronary artery in November of this year in the setting of a non-ST elevation myocardial infarction. At that time, she was found to have an 80% stenosis in the right coronary with no other hemodynamically significant stenoses noted. She had normal LV systolic function. Her post-intervention course has been relatively unremarkable. Yesterday, she had some midsternal chest discomfort. After 3 nitroglycerins, the pain had resolved. The patient presented to Emergency Room for further evaluation. EKG did not show any acute ST segment abnormalities at this time. The patient has been watched overnight in the hospital. Troponins are negative x 3 sets. She is no longer having discomfort at this time. There was no radiation of the discomfort. PAST MEDICAL HISTORY: 1. Coronary artery disease, status post percutaneous coronary intervention as outlined above. 2. Chronic obstructive pulmonary disease. 3. Hypercholesterolemia. 4. Hypertension. 5. Hypothyroidism. 6. remotely. 7. Colon Surgery remotely. 8. Hysterectomy. 9. Tonsillectomy. FAMILY HISTORY: Noncontributory. SOCIAL HISTORY: The patient quit smoking remotely. She does not drink alcohol. CURRENT MEDICATIONS: Aspirin 81 mg daily, atorvastatin 20 mg daily, carvedilol 3.125 mg b.i.d., clopidogrel 75 mg daily, [place] 5/325 q. 8 hours p.r.n., Singulair 10 mg at night, Nitrostat p.r.n., Protonix 40 mg daily. ALLERGIES: None documented. REVIEW OF SYSTEMS: A 14-point review of systems is positive for pneumonia remotely, chest discomfort, dyspnea, anxiety, and she wears glasses. Otherwise, 14-point review of [place] [address] CONSULTATION Name: TRENTON CONNER JO [address] [id number] Admission: 03/13/19 Attend Phys: Bruce Nova MD Discharge: 03/14/19 Date of : 44 Report #: [id number] PHYSICAL EXAMINATION: VITAL SIGNS: Stable. Blood pressure 140/59, pulse 70 and regular. GENERAL: This is a pleasant lady in no distress. Mood and affect appropriate. HEENT: The patient is wearing glasses. Extraocular muscles intact. Mucous membranes are moist. NECK: Shows no jugular venous distention. There are no carotid bruits. CHEST: Reveals clear lung rausch. I do not appreciate wheezes or rales. CARDIAC: Reveals a regular rhythm with no gallop or murmur. ABDOMEN: Reveals normal bowel sounds. The abdomen is soft, nontender. EXTREMITIES: Shows no edema. SKIN: Warm and dry. IMPRESSION AND RECOMMENDATIONS: 1. Chest discomfort in a patient with history of coronary artery disease. The patient has ruled out for myocardial infarction. EKG is stable. I believe she is stable for discharge to home. Continue dual antiplatelet therapy as outlined above. 2. Coronary artery disease, presently stable. She had intervention in November of this year. We will continue dual antiplatelet therapy including aspirin and Plavix at this time. 3. Hypertension. Blood pressure adequately controlled on current cardiac regimen. 4. Hyperlipidemia. Continue atorvastatin at current dose. <ELECTRONICALLY SIGNED> By: Reymundo Franz MD, FACC 03/15/19 0858 1118 0130Reymundo Franz MD, FACC /nt
== END 2019-03-14 11:55 | disposition home or self-care (01) ==
LOC: M.ERS 13:13 → M.TBA-ER 14:26 → M.2W 16:24
PROVIDERS: Family Medicine; ADMIT Internal Medicine
DX: I25.10 Atherosclerotic heart disease of native coronary artery without angina pectoris (principal); K21.9 Gastro-esophageal reflux disease without esophagitis; K44.9 Diaphragmatic hernia without obstruction or gangrene; J44.9 Chronic obstructive pulmonary disease, unspecified; R73.03 Prediabetes; Z79.82 Long term (current) use of aspirin; Z79.899 Other long term (current) drug therapy; E03.9 Hypothyroidism, unspecified; I10 Essential (primary) hypertension; E78.00 Pure hypercholesterolemia, unspecified; E78.5 Hyperlipidemia, unspecified; Z95.5 Presence of coronary angioplasty implant and graft; Z90.710 Acquired absence of both cervix and uterus; Z98.890 Other specified postprocedural states; Z87.891 Personal history of nicotine dependence; Z90.89 Acquired absence of other organs

== ENCOUNTER 2019-04-12 15:14 | Emergency (ER) | payer MEDICARE ==
[~2019-04-12] VITALS: Ht 162.6 cm; Wt 72.6 kg
--- NOTE | ~2019-04-12 | PROC ---
[address] [address] PROCEDURE REPORT Name: TRENTON CONNER Room: [facility] Kamla#: [id number] Admission: 04/12/19 Attend Phys: Discharge: 04/12/19 Date of : 44 Report #: [id number] THIS REPORT FOR: //name// For GI report, please see the Provation report in Perceptive 7 content. By: [id number] Records Staff GRAYSON /MARIAM
[~2019-04-12 15:14] MED LIST changes: +PEPCID20 MG PO; +PLAVIX 75 MG TA75 M1 PO
[2019-04-12 16:16] LABS: CALCIUM 9.3 mg/dL (8.5-10.1); CREATININE 0.7 mg/dL (0.6-1.3); POTASSIUM 4.3 mmol/L (3.5-5.1)
[2019-04-12 16:20] LABS: ALBUMIN 4.2 g/dL (3.4-5.0); TOTAL BILIRUBIN 0.3 mg/dL (<0.1-1.0)
[2019-04-12 16:23] LABS: ABSOLUTE BASOPHILS 0.1 thou/uL (0.0-0.2); ABSOLUTE EOSINOPHILS 0.3 thou/uL (0.0-0.7); ABSOLUTE LYMPHOCYTES 1.1 thou/uL (0.8-5.3); ABSOLUTE MONOCYTES 0.4 thou/uL (0.0-1.2); ABSOLUTE NEUTROPHILS 4.2 thou/uL (1.6-8.1); BASOPHILS 1.1 %; EOSINOPHILS 4.7 %; HEMATOCRIT 33.1 % (37.0-47.0); HEMOGLOBIN 10.9 gm/dL (12.0-15.0); LYMPHOCYTES 18.4 %; MCH 29.8 pg (26.0-34.0); MCHC 33.1 g/dL (28.0-37.0); MCV 90.2 fL (80.0-100.0); MONOCYTES 6.9 %; MPV 7.3 fl. (7.2-11.1); NUCLEATED RBCS 0 /100WBC; PLATELET COUNT* 323 thou/uL (150-400); POLYS 68.9 %; RBC 3.66 mil/uL (4.20-5.00); RDW-CV 13.1 % (10.5-14.5)
[2019-04-12 16:50] LABS: PROTIME 10.4 Seconds (9.20-11.50)
[2019-04-12 18:33] VITALS: BP 177/70
== END 2019-04-12 17:28 | disposition still patient (30) ==
LOC: M.ERS 15:14 → M.GI 15:14 → M.ERS 17:28
PROVIDERS: Physician Assistant
PROC: 0DJ08ZZ Inspection of Upper Intestinal Tract, Via Natural or Artificial Opening Endoscopic (ICD-10-PCS; principal; 2019-04-12)
DX: S11.21XA Laceration without foreign body of pharynx and cervical esophagus, initial encounter (principal); X58.XXXA Exposure to other specified factors, initial encounter; Y93.89 Activity, other specified; Y92.89 Other specified places as the place of occurrence of the external cause; Y99.8 Other external cause status; E03.9 Hypothyroidism, unspecified; I10 Essential (primary) hypertension; J44.9 Chronic obstructive pulmonary disease, unspecified; K21.9 Gastro-esophageal reflux disease without esophagitis; F41.9 Anxiety disorder, unspecified; I25.10 Atherosclerotic heart disease of native coronary artery without angina pectoris; Z90.710 Acquired absence of both cervix and uterus; Z98.890 Other specified postprocedural states; Z87.891 Personal history of nicotine dependence

== ENCOUNTER → 2019-06-07 | Outpatient (CLI) | payer MEDICARE ==
--- NOTE | 2019-06-07 10:44 | 2DMMODE ---
[place] [address] 2 D/M-MODE ECHOCARDIOGRAM Name: TRENTON CONNER Room: [facility]#: [id number] Admission: 06/07/19 Attend Phys: Blanca Temple Discharge: Date of : 44 Date of Service: 06/07/19 1043 Report #: [id number] THIS REPORT FOR: //name// APPROVED REPORT Study performed: 06/07/2019 09:05:56 EXAM: Comprehensive 2D, Doppler, and color-flow Echocardiogram Patient Location: Out-Patient BSA: 1.81 HR: 73 bpm BP: 102/70 mmHg Other Information Study Quality: Good Indications CAD Hypertension/HDD 2D Dimensions IVSd: 12.44 (7-11mm) LVOT Diam: 19.24 (18-24mm) LVDd: 44.93 mm PWd: 10.57 (7-11mm) Ascending Ao: 26.81 (22-36mm) LVDs: 29.87 (25-40mm) Aortic Root: 28.80 mm Volumes Left Atrial Volume (Systole) LA ESV Index: 15.90 mL/m2 Aortic Valve AoV Peak Joey.: 1.18 m/s AO Peak Gr.: 5.57 mmHg LVOT Max P.14 mmHg AO Mean Gr.: 3.01 mmHg LVOT Mean P.23 mmHg LVOT Max V: 0.89 m/s AO V2 VTI: 23.75 cm LVOT Mean V: 0.49 m/s GALE (VTI): 2.47 cm2 LVOT V1 VTI: 20.16 cm Mitral Valve E/A Ratio: 0.78 MV Decel. Time: 217.55 ms MV E Max Joey.: 0.68 m/s MV PHT: 63.09 [place] [address] 2 D/M-MODE ECHOCARDIOGRAM Name: TRENTON CONNER Room: [facility]#: [id number] Admission: 06/07/19 Attend Phys: Blanca Temple Discharge: Date of : 44 Date of Service: 06/07/19 1043 Report #: [id number] MVA (PHT): 3.49 cm2 TDI E/Lateral E': 11.33 E/Medial E': 11.33 Medial E' Joey.: 0.06 m/s Lateral E' Joey.: 0.06 m/s Pulmonary Valve PV Peak Joey.: 0.67 m/s PV Peak Gr.: 1.81 mmHg Tricuspid Valve RAP Estimate: 5.00 mmHg TR Peak Gr.: 39.16 mmHg RVSP: 44.16 mmHg PA Pressure: 44.16 mmHg Left Ventricle The left ventricle is normal size. There is normal LV segmental wall motion. There is normal left ventricular wall thickness. Left ventricular systolic function is normal. The left ventricular ejection fraction is within the normal range. LVEF is 60-65%. Grade I - abnormal relaxation pattern. Right Ventricle The right ventricle is normal size. The right ventricular systolic function is normal. Atria The left atrium size is normal. The right atrium size is normal. Aortic Valve Mild aortic valve sclerosis. No aortic regurgitation is present. There is no aortic valvular stenosis. Mitral Valve The mitral valve is normal in structure. Mild mitral regurgitation. No evidence of mitral valve stenosis. Tricuspid Valve The tricuspid valve is normal in structure. Mild tricuspid regurgitation. Pulmonic Valve The pulmonary valve is normal in structure. [place] [address] 2 D/M-MODE ECHOCARDIOGRAM Name: UBALDOTRENTON CHRISTY JO [id number] Admission: 06/07/19 Attend Phys: Blanca Temple Discharge: Date of : 44 Date of Service: 06/07/19 1043 Report #: [id number] Great Vessels The aortic root is normal in size. IVC is normal in size and collapses >50% with inspiration. Pericardium There is no pericardial effusion. <Conclusion> The left ventricle is normal size. There is normal left ventricular wall thickness. Left ventricular systolic function is normal. The left ventricular ejection fraction is within the normal range. LVEF is 60-65%. Grade I - abnormal relaxation pattern. The right ventricle is normal size. The left atrium size is normal. Mild aortic valve sclerosis. No aortic regurgitation is present. There is no aortic valvular stenosis. The mitral valve is normal in structure. Mild mitral regurgitation. The tricuspid valve is normal in structure. IVC is normal in size and collapses >50% with inspiration. There is no pericardial effusion. There is normal LV segmental wall motion. <ELECTRONICALLY SIGNED> By: Jonathan Neri MD, FACC 06/07/19 1043 1043 1043 Jonathan Neri MD, FACC /INF
== END ==
LOC: M.CRD 09:00
DX: I08.3 Combined rheumatic disorders of mitral, aortic and tricuspid valves (principal); I25.10 Atherosclerotic heart disease of native coronary artery without angina pectoris; I10 Essential (primary) hypertension

== ENCOUNTER 2019-07-21 11:47 | Emergency (ER) | payer MEDICARE ==
[~2019-07-21] VITALS: Ht 160 cm; Wt 77.1 kg
[2019-07-21] MEDS ORDERED: NORCO 5-325 TA1 EAC1 PO (12:53)
[2019-07-21 13:01] VITALS: BP 138/63
== END 2019-07-21 13:03 | disposition home or self-care (01) ==
LOC: M.ERS 11:47
DX: S09.93XA Unspecified injury of face, initial encounter (principal); I10 Essential (primary) hypertension; E03.9 Hypothyroidism, unspecified; J44.9 Chronic obstructive pulmonary disease, unspecified; I25.10 Atherosclerotic heart disease of native coronary artery without angina pectoris; K21.9 Gastro-esophageal reflux disease without esophagitis; F41.9 Anxiety disorder, unspecified; Z90.710 Acquired absence of both cervix and uterus; Z98.890 Other specified postprocedural states; Z87.891 Personal history of nicotine dependence; W01.0XXA Fall on same level from slipping, tripping and stumbling without subsequent striking against object, initial encounter; Y92.89 Other specified places as the place of occurrence of the external cause; Y93.89 Activity, other specified; Y99.8 Other external cause status

== ENCOUNTER 2019-11-17 17:09 | Inpatient (IN) | payer MEDICARE ==
[~2019-11-17] VITALS: Ht 160 cm; Wt 78.9 kg
[~2019-11-17 17:09] MED LIST changes: +NORCO 5-325 TA1 EAC2 PO
[2019-11-17 17:18] VITALS: BP 166/87
[2019-11-17 17:42] LABS: HEMATOCRIT 34.9 % (37.0-47.0); MCHC 34.3 g/dL (28.0-37.0); MCV 90.5 fL (80.0-100.0); MPV 7.6 fl. (7.2-11.1); NUCLEATED RBCS 0 /100WBC; PLATELET COUNT* 302 thou/uL (150-400); RBC 3.85 mil/uL (4.20-5.00); RDW-CV 14.2 % (10.5-14.5); WBC 11.2 thou/uL (4.0-11.0)
[2019-11-17 17:51] LABS: CALCIUM 9.9 mg/dL (8.5-10.1); CREATININE 0.8 mg/dL (0.6-1.3); POTASSIUM 3.6 mmol/L (3.5-5.1)
[2019-11-17 17:55] LABS: PCO2 32.1 mmHg (35.0-45.0); PO2 69.4 mmHg (75.0-100.0); pH 7.425 (7.340-7.450)
[2019-11-17 17:56] LABS: ALBUMIN 4.1 g/dL (3.4-5.0); TOTAL BILIRUBIN 0.3 mg/dL (<0.1-1.0); TOTAL PROTEIN 7.3 g/dL (6.4-8.2)
[2019-11-17 18:10] LABS: ABSOLUTE EOSINOPHILS 0.3 thou/uL (0.0-0.7); ABSOLUTE LYMPHOCYTES 0.7 thou/uL (0.8-5.3); ABSOLUTE MONOCYTES 0.1 thou/uL (0.0-1.2); ABSOLUTE NEUTROPHILS 10.1 thou/uL (1.6-8.1); PLATELET ESTIMATE ADEQUATE
[2019-11-17 18:52] LABS: INFLUENZA A ANTIGEN Negative (Negative); INFLUENZA B ANTIGEN Negative (Negative)
[2019-11-17 21:51] VITALS: BP 160/75
[2019-11-17 22:20] VITALS: BP 136/57
[2019-11-18] VITALS: BP 121/65
[2019-11-18 04:00] VITALS: BP 114/49
[2019-11-18 08:20] VITALS: BP 119/50
[2019-11-18] MEDS ORDERED: PREDNISONE 10 M10 MG PO (11:20)
[2019-11-18] MEDS ORDERED: CEFDINIR300 MG PO (11:21)
[2019-11-18 11:30] VITALS: BP 124/59
[2019-11-18 11:47] VITALS: BP 124/59
[2019-11-18 12:43] VITALS: BP 124/59
--- NOTE | 2019-11-18 12:56 | EKG ---
[place] [address] ELECTROCARDIOGRAM REPORT Name: UBALDOTRENTON Room: [address] ADM IN M.R.#: [id number] Admission: 11/17/19 Attend Phys: Evangelist Vicente MD Discharge: Date of : 44 Report #: [id number] THIS REPORT FOR: //name// [facility] ED Test Date: 2019-11-17 Test Time: 18:13:20 Pat Name: TRENTON CONNER Department: Room: [facility] Gender: F Metal Tester: NATALI : 1940 Requested By: Karie Jones Order Number: [id number] MD: Abraham Kwon Measurements Intervals [place] Rate: 97 P: 58 LA: 168 QRS: -42 QRSD: 153 T: 26 QT: 386 QTc: 491 Interpretive Statements Sinus rhythm RBBB and LAFB Compared to ECG 03/13/2019 13:16:31 Left anterior fascicular block now present Electronically Signed On 11-18-2019 12:55:46 FUEL CELL BUILDER by Abraham Kwon [email or web address] <ELECTRONICALLY SIGNED> By: Abraham Kwon MD, FAC 11/18/19 1255 1813 1813 Abraham Kwon MD, [facility] /EPI
== END 2019-11-18 12:40 | disposition home or self-care (01) | DRG 189 ==
LOC: M.ERS 17:09 → M.TBA-ER 20:19 → M.2W 20:19
PROVIDERS: Personal Emergency Response Attendant; ADMIT Internal Medicine
DX: J96.20 Acute and chronic respiratory failure, unspecified whether with hypoxia or hypercapnia (principal); J44.1 Chronic obstructive pulmonary disease with (acute) exacerbation; R65.10 Systemic inflammatory response syndrome (SIRS) of non-infectious origin without acute organ dysfunction; J44.0 Chronic obstructive pulmonary disease with (acute) lower respiratory infection; J20.9 Acute bronchitis, unspecified; E03.9 Hypothyroidism, unspecified; I10 Essential (primary) hypertension; I25.10 Atherosclerotic heart disease of native coronary artery without angina pectoris; K21.9 Gastro-esophageal reflux disease without esophagitis; F41.9 Anxiety disorder, unspecified; Z87.891 Personal history of nicotine dependence; Z82.49 Family history of ischemic heart disease and other diseases of the circulatory system; Z90.710 Acquired absence of both cervix and uterus; Z95.5 Presence of coronary angioplasty implant and graft

== ENCOUNTER 2019-11-27 09:28 | Inpatient (IN) | payer MEDICARE ==
[~2019-11-27] VITALS: Ht 160 cm; Wt 77.1 kg
[~2019-11-27 09:28] MED LIST changes: +CEFDINIR300 MG PO
[2019-11-27 09:38] VITALS: BP 101/51
[2019-11-27 09:53] LABS: HEMATOCRIT 36.5 % (37.0-47.0); HEMOGLOBIN 12.3 gm/dL (12.0-15.0); MCH 30.3 pg (26.0-34.0); MCHC 33.7 g/dL (28.0-37.0); MCV 89.8 fL (80.0-100.0); MPV 7.5 fl. (7.2-11.1); NUCLEATED RBCS 0 /100WBC; PLATELET COUNT* 333 thou/uL (150-400); RBC 4.06 mil/uL (4.20-5.00); RDW-CV 13.7 % (10.5-14.5); WBC 15.5 thou/uL (4.0-11.0)
[2019-11-27 10:05] LABS: INFLUENZA A ANTIGEN Negative (Negative); INFLUENZA B ANTIGEN Negative (Negative)
[2019-11-27 10:10] LABS: CALCIUM 8.5 mg/dL (8.5-10.1)
[2019-11-27 10:11] LABS: POTASSIUM 2.6 mmol/L (3.5-5.1)
[2019-11-27 10:15] LABS: ABSOLUTE EOSINOPHILS 0.3 thou/uL (0.0-0.7); ABSOLUTE LYMPHOCYTES 1.6 thou/uL (0.8-5.3); ABSOLUTE MONOCYTES 0.6 thou/uL (0.0-1.2)
[2019-11-27 10:16] LABS: ALBUMIN 3.3 g/dL (3.4-5.0); TOTAL BILIRUBIN 0.4 mg/dL (<0.1-1.0); TOTAL PROTEIN 6.8 g/dL (6.4-8.2); TOXIC GRANULATION 1+
[2019-11-27 10:17] LABS: CLUMPED PLTS RARE; PLATELET ESTIMATE ADEQUATE
[2019-11-27 10:20] LABS: APTT 25.7 Seconds (25.0-31.3); PROTIME 10.1 Seconds (9.20-11.50)
[2019-11-27 10:40] LABS: PCO2 31.6 mmHg (35.0-45.0); PO2 98.8 mmHg (75.0-100.0); pH 7.445 (7.340-7.450)
[2019-11-27 13:16] LABS: URINE BILIRUBIN NEGATIVE (Negative); URINE BLOOD TRACE (Negative); URINE CLARITY CLEAR; URINE COLOR YELLOW; URINE GLUCOSE-RANDOM NEGATIVE (Negative); URINE KETONES NEGATIVE (Negative); URINE LEUKOCYTES-REFLEX NEGATIVE (Negative); URINE NITRITE-REFLEX NEGATIVE (Negative); URINE PROTEIN NEGATIVE (Negative); URINE SPECIFIC GRAVITY <= 1.005 (1.005-1.030); URINE UROBILINOGEN 0.2 E.U./dl (0.2-1.0)
[2019-11-27 14:34] VITALS: BP 117/37
--- NOTE | 2019-11-27 17:59 | NUR ---
PT ARRIVED ON UNIT AT 1445 FROM ED WITH ABX RUNNING THAT WERE COMPLETED THIS SHIFT. PT CODE STATUS CHANGED TO DNR PER DR SANTIAGO. PT TOLERATING BEING UP AD ANDREA WITH STEADY GAIT, TOLERATING REG DIET WITH NO N/V, TOLERATING RA WITH O2 SATS GREATER THAN 94% THIS SHIFT. PT SKIN INTACT WITH BRUISING THAT PT STATES IS RESULT OF ANTI-COAG USE. PT WAS PROVIDED WITH POTASSIUM PRIOR TO LEAVING ED THIS SHIFT. NO CONCERNS NOTED AT THIS TIME, NO C/O PAIN REPORTED. HOURLY ROUNDING MAINTAINED THIS SHIFT. WILL CONTINUE TO MONITOR AND ASSESS
[2019-11-27 20:00] VITALS: BP 152/66
[2019-11-28 06:05] LABS: ABSOLUTE LYMPHOCYTES 0.8 thou/uL (0.8-5.3); ABSOLUTE MONOCYTES 0.4 thou/uL (0.0-1.2); ABSOLUTE NEUTROPHILS 13.9 thou/uL (1.6-8.1); BASOPHILS 0.3 %; HEMATOCRIT 33.8 % (37.0-47.0); HEMOGLOBIN 11.4 gm/dL (12.0-15.0); MCH 30.2 pg (26.0-34.0); MCHC 33.7 g/dL (28.0-37.0); MCV 89.4 fL (80.0-100.0); MONOCYTES 2.7 %; MPV 7.6 fl. (7.2-11.1); NUCLEATED RBCS 0 /100WBC; PLATELET COUNT* 299 thou/uL (150-400); RBC 3.78 mil/uL (4.20-5.00); RDW-CV 13.8 % (10.5-14.5); WBC 15.1 thou/uL (4.0-11.0)
--- NOTE | 2019-11-28 06:11 | NUR ---
Alert and oriented x 4. Up independently in room. Lungs are diminshed in lower lobes and have wheezes throughtout. She is coughing but phlegm was not observed. She did have lozenges ordered and home med of doxepin ordered. Vitals are stable, o2 sat 94% on roomair.
[2019-11-28 06:22] LABS: CALCIUM 9.1 mg/dL (8.5-10.1); CREATININE 0.9 mg/dL (0.6-1.3); POTASSIUM 3.3 mmol/L (3.5-5.1)
[2019-11-28 07:45] VITALS: BP 128/63
--- NOTE | 2019-11-28 09:57 | EKG ---
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[facility] : 1940 Requested By: Rico Martinez Order Number: [id number] MD: Abraham Kwon Measurements Intervals [place] Rate: 73 P: 54 [place]: 136 QRS: -8 QRSD: 160 T: -27 QT: 398 QTc: 439 Interpretive Statements Sinus rhythm Right bundle branch block Compared to ECG 11/17/2019 18:13:20 no change Electronically Signed On 11-28-2019 9:57:04 IC DESIGN ENGINEER by Abraham Kwon [email or web address] <ELECTRONICALLY SIGNED> By: Abraham Kwon MD, [facility] [phone] Abraham Kwon MD, [facility] /EPI
[2019-11-28 20:00] VITALS: BP 139/64
[2019-11-29 05:44] LABS: HEMATOCRIT 32.5 % (37.0-47.0); HEMOGLOBIN 10.8 gm/dL (12.0-15.0); MCH 29.8 pg (26.0-34.0); MCHC 33.3 g/dL (28.0-37.0); MCV 89.4 fL (80.0-100.0); MPV 7.9 fl. (7.2-11.1); NUCLEATED RBCS 0 /100WBC; PLATELET COUNT* 345 thou/uL (150-400); RBC 3.63 mil/uL (4.20-5.00); RDW-CV 14.1 % (10.5-14.5); WBC 25.4 thou/uL (4.0-11.0)
[2019-11-29 05:57] LABS: CALCIUM 8.9 mg/dL (8.5-10.1); CREATININE 0.8 mg/dL (0.6-1.3); POTASSIUM 3.3 mmol/L (3.5-5.1)
--- NOTE | 2019-11-29 06:29 | NUR ---
Alert and oriented x 4. She is up independently in the room. She has been coughing less and lungs were less wheezy than the previous night. She did have pain meds x 1. She has slept well this shift.
[2019-11-29 06:48] LABS: ABSOLUTE MONOCYTES 0.3 thou/uL (0.0-1.2); ABSOLUTE NEUTROPHILS 24.1 thou/uL (1.6-8.1); METAMYELOCYTES 2 %; PLATELET ESTIMATE ADEQUATE
[2019-11-29 08:08] VITALS: BP 112/79
[2019-11-29 10:52] VITALS: BP 112/79
[2019-11-29] MEDS ORDERED: PROTONIX40 M2 PO (11:14)
[2019-11-29] MEDS ORDERED: AUGMENTIN 875-1 EACH PO (11:14)
--- NOTE | 2019-11-29 11:31 | NUR ---
PT DISCHARGED AT 1129 TO HOME WITH NURSING STAFF AND . PAPER SCRIPTS AND CARE NOTES GIVEN. IV OUT. PT STABLE UPON DISCHARGE.
== END 2019-11-29 11:29 | disposition home or self-care (01) | DRG 177 ==
LOC: M.ERS 09:28 → M.TBA-ER 11:04 → M.ORTHSURG 11:04
PROVIDERS: Family Medicine; ADMIT Internal Medicine
DX: J15.6 Pneumonia due to other Gram-negative bacteria (principal); J96.01 Acute respiratory failure with hypoxia; J44.1 Chronic obstructive pulmonary disease with (acute) exacerbation; J44.0 Chronic obstructive pulmonary disease with (acute) lower respiratory infection; E03.9 Hypothyroidism, unspecified; I10 Essential (primary) hypertension; I25.10 Atherosclerotic heart disease of native coronary artery without angina pectoris; E87.6 Hypokalemia; K21.9 Gastro-esophageal reflux disease without esophagitis; F41.9 Anxiety disorder, unspecified; D72.829 Elevated white blood cell count, unspecified; Z79.82 Long term (current) use of aspirin; Z79.899 Other long term (current) drug therapy; Z87.891 Personal history of nicotine dependence; Z90.710 Acquired absence of both cervix and uterus; Z95.5 Presence of coronary angioplasty implant and graft; Z82.49 Family history of ischemic heart disease and other diseases of the circulatory system; T38.0X5A Adverse effect of glucocorticoids and synthetic analogues, initial encounter; Y92.89 Other specified places as the place of occurrence of the external cause

== ENCOUNTER → 2020-05-04 | Outpatient (CLI) | payer MEDICARE ==
[~2020-05-04] MED LIST changes: +AUGMENTIN 875-1 EACH PO; +BUTRANS1 EACH INTRADERM; +HYDROCODON-ACE1 EAC7 PO; +VITAMIN B-121000 MC2 SUBLING
--- NOTE | 2020-05-09 08:17 | PAINCON ---
[address] [address] PAIN MANAGEMENT CONSULTATION Name: TRENTON CONNER JO Room: [facility]..#: [id number] Admission: 05/04/20 Attend Phys: Anant Swartz MD Discharge: Date of : 44 Report #: [id number] THIS REPORT FOR: //name// cc: Sandy Castillo MD, Tuongvan T. MD ~ THIS REPORT FOR: //name// CC: Anant Castillo MD DATE OF SERVICE: 05/04/2020 CHIEF COMPLAINT: Chronic pain. HISTORY: The patient is a 80-year-old female who has been referred to the Pain Clinic for evaluation. She has used hydrocodone to help control her pain in the past. Pain is primarily in the low back area. She rates it as an 8/10. She has had some surgeries. She has had 7 surgeries on the stomach. Because of the constant pain, she has used pain medications. She describes her discomfort as a stabbing pain at times. Pain radiates at times into her hip and down into her legs. She states that her primary care physician is no longer writing for chronic pain medications. The patient has been referred to the Pain Clinic for evaluation. The patient has used hydrocodone 5 mg 1-2 tablets daily. She did use gabapentin in the past. She did not feel that this medication was helpful, so she stopped taking it. Feels that use of the hydrocodone medication helps her pain about 50% of the time. She notes worsening of pain and discomfort with activities. Walking is problematic. She states that she is trying to keep use of these medications to a minimum. ALLERGIES: No known drug allergies. CURRENT MEDICATIONS: Aspirin 81 mg chewable, Coreg 3.125 mg b.i.d., nitroglycerin 0.4 mg sublingual p.r.n., Lipitor 20 mg, vitamin B12, hydrocodone 5/325 one p.o. b.i.d., digoxin 100 mg at bedtime, and Plavix 75 mg. PAST MEDICAL HISTORY: Psychophysiologic insomnia, chronic pain syndrome, hypercholesterolemia, peritoneal adhesions, polyosteoarthritis, major depressive disorder, single episode of chronic bronchitis, vitamin D deficiency, fibromyalgia, generalized anxiety disorder, mild intermittent asthma, chronic obstructive pulmonary disease, and left shoulder pain. PAST SURGICAL HISTORY: Left lung resection 01/08/2008, uncomplicated right lung, tonsillectomy in 1957, sinus surgery in 2002, section in 1958, hysterectomy in 1982, colon perforation, 01/12/2008, mesh stomach repair, 03/07/2008, x 3, status post right [place] [address] PAIN MANAGEMENT CONSULTATION Name: TRENTON CONNER [id number] Admission: 05/04/20 Attend Phys: Anant Swartz MD Discharge: Date of : 44 Report #: [id number] REVIEW OF SYSTEMS: Fatigue and weakness, heart trouble, shortness of breath, joint pain, joint stiffness, weakness of muscles, muscle pain and cramping, back pain, change in hair and nails, and nervousness. PAIN CLINIC ASSESSMENT/PQRS: 1. The patient is not being treated for rheumatoid arthritis, has some osteoarthritic complaints. 2. Height 5 feet 3 inches, weight 172 pounds, and BMI is 30. 3. Vital signs: Blood pressure 155/84, heart rate 81, respiratory rate 16, room air saturation 94%, and temperature is 97.8. 4. Pain intensity, 8/10. 5. Fall history: The patient has not fallen in the last 3 months. 6. Blood thinner. The patient is on a blood thinning medication. 7. Hypertension. The patient is being treated for hypertension. 8. Opioids greater than 6 weeks. The patient has been received medication from her primary. 9. Risk assessment tool, low for opioid use. 10. Functional assessment tool reviewed. 11. Recreational drug use. The patient denies. 12. Tobacco: The patient does not smoke. 13. Alcohol: The patient denies frequent use of alcoholic beverages. PHYSICAL EXAMINATION: GENERAL: The patient is a well-developed, well-nourished white female. Appears her stated age. She is alert and oriented x 3. Her affect is appropriate. Speech is fluent. HEENT: Normocephalic, atraumatic. Extraocular eye muscles intact. Sclerae nonicteric. NECK: Good range of motion. HEART: Regular rate. ABDOMEN: Some complaints of discomfort. EXTREMITIES: Upper extremity muscle strength judged to be 4+/5 for the major muscle groups in the upper extremity. Lower extremity muscle strength is 5/5 for the lower muscle groups. The patient complains of some pain and discomfort in the low back area and abdominal area. IMPRESSION: 1. Chronic low back pain. 2. Psychophysiologic insomnia. 3. Chronic pain syndrome. 4. Hypercholesterolemia. 5. Peritoneal adhesions. 6. Polyosteoarthritis. 7. Major depressive disorder. 8. Single episode [place] [address] PAIN MANAGEMENT CONSULTATION Name: RTENTON CONNER Room: [facility]#: [id number] Admission: 05/04/20 Attend Phys: Anant Swartz MD Discharge: Date of : 44 Report #: [id number] 9. Vitamin D deficiency. 10. Fibromyalgia. 11. Generalized anxiety disorder. 12. Mild intermittent asthma. 13. Chronic obstructive pulmonary disease. 14. Left shoulder pain. RECOMMENDATIONS: We discussed treatment options with the patient. We will try Butrans patch 5 mg. This will be ____ for 5 days or 7 days. We will see whether or not this is helpful with the patient's pain and discomfort. She states that she has tried tramadol and it was not helpful. States she has tried gabapentin and this medication was not very successful. Should the Butrans patch not be effective, we will continue to increase it as she is able to tolerate it. If need be, we will consider having the patient continue with hydrocodone 5 mg 1 p.o. daily. We would like to thank you for letting us participate in her care. She continues to improve. <ELECTRONICALLY SIGNED> By: Anant Swartz MD 05/09/20 0817 2146 [id number]. Edmond Swartz MD /nt
== END ==
LOC: M.PC 05:10
PROVIDERS: ATTEND Anesthesiology Pain Medicine
DX: M54.5 Low back pain (principal); G89.4 Chronic pain syndrome; E78.00 Pure hypercholesterolemia, unspecified; K66.0 Peritoneal adhesions (postprocedural) (postinfection); M15.9 Polyosteoarthritis, unspecified; J20.9 Acute bronchitis, unspecified; F32.9 Major depressive disorder, single episode, unspecified; F51.04 Psychophysiologic insomnia; Z79.899 Other long term (current) drug therapy

== ENCOUNTER → 2020-06-21 | Outpatient (CLI) | payer MEDICARE | LOC: M.LAB 09:52 | PROVIDERS: ATTEND Internal Medicine Gastroenterology | DX: Z01.812 Encounter for preprocedural laboratory examination (principal); Z11.59 Encounter for screening for other viral diseases; D64.9 Anemia, unspecified; Z79.1 Long term (current) use of non-steroidal anti-inflammatories (NSAID) ==

== ENCOUNTER → 2020-08-21 | Outpatient (CLI) | payer MEDICARE ==
--- NOTE | 2020-08-21 12:13 | 2DMMODE ---
[place] [address] 2 D/M-MODE ECHOCARDIOGRAM Name: TRENTON CONNER JO Room: [facility]#: [id number] Admission: 08/21/20 Attend Phys: Blanca Temple Discharge: Date of : 44 Date of Service: 08/21/20 1213 Report #: [id number] THIS REPORT FOR: cc: Sandy Castillo MD, Tuongvan T. MD Holkins, John M. MD [facility] ~ APPROVED REPORT Study performed: 08/21/2020 10:11:59 EXAM: Comprehensive 2D, Doppler, and color-flow Echocardiogram Patient Location: Out-Patient BSA: 1.80 HR: 76 bpm BP: 142/80 mmHg Other Information Study Quality: Good Indications CAD 2D Dimensions IVSd: 11.31 (7-11mm) LVOT Diam: 19.66 (18-24mm) LVDd: 45.73 mm PWd: 8.89 (7-11mm) Ascending Ao: 25.89 (22-36mm) LVDs: 26.99 (25-40mm) Aortic Root: 29.69 mm Volumes Left Atrial Volume (Systole) LA ESV Index: 14.70 mL/m2 Aortic Valve AoV Peak Joey.: 1.22 m/s AO Peak Gr.: 5.98 mmHg LVOT Max P.50 mmHg AO Mean Gr.: 3.20 mmHg LVOT Mean P.57 mmHg LVOT Max V: 0.93 m/s AO V2 VTI: 24.46 cm LVOT Mean V: 0.57 m/s GALE (VTI): 2.56 cm2 LVOT V1 VTI: 20.58 cm Mitral Valve E/A Ratio: 0.63 [place] [address] 2 D/M-MODE ECHOCARDIOGRAM Name: TRENTON CONNER Room: [facility]#: [id number] Admission: 08/21/20 Attend Phys: Blanca Temple Discharge: Date of : 44 Date of Service: 08/21/20 1213 Report #: [id number] MV Decel. Time: 271.42 ms MV E Max Joey.: 0.52 m/s MV PHT: 78.71 ms MVA (PHT): 2.79 cm2 TDI E/Lateral E': 5.78 E/Medial E': 7.43 Medial E' Joey.: 0.07 m/s Lateral E' Joey.: 0.09 m/s Pulmonary Valve PV Peak Joey.: 0.75 m/s PV Peak Gr.: 2.27 mmHg Tricuspid Valve RAP Estimate: 5.00 mmHg TR Peak Gr.: 17.47 mmHg RVSP: 22.47 mmHg PA Pressure: 22.47 mmHg Left Ventricle The left ventricle is normal size. There is normal LV segmental wall motion. Borderline concentric left ventricular hypertrophy. Left ventricular systolic function is normal. The left ventricular ejection fraction is within the normal range. LVEF is 55-60%. Grade I - abnormal relaxation pattern. Right Ventricle The right ventricle is normal size. The right ventricular systolic function is normal. Atria The left atrium size is normal. The right atrium size is normal. Aortic Valve Mild aortic valve sclerosis. No aortic regurgitation is present. There is no aortic valvular stenosis. Mitral Valve The mitral valve is normal in structure. Mild mitral regurgitation. No evidence of mitral valve stenosis. Tricuspid Valve The tricuspid valve is normal in structure. Mild tricuspid regurgitation[place] [address] 2 D/M-MODE ECHOCARDIOGRAM Name: UBALDOTRENTON CHRISTY JO Room: [facility]#: [id number] Admission: 08/21/20 Attend Phys: Blanca Temple Discharge: Date of : 44 Date of Service: 08/21/20 1213 Report #: [id number] The pulmonary valve is normal in structure. There is no pulmonic valvular regurgitation. Great Vessels The aortic root is normal in size. IVC is normal in size and collapses >50% with inspiration. Pericardium There is no pericardial effusion. <Conclusion> The left ventricle is normal size. Borderline concentric left ventricular hypertrophy. Left ventricular systolic function is normal. The left ventricular ejection fraction is within the normal range. LVEF is 55-60%. Grade I - abnormal relaxation pattern. The right ventricle is normal size. The left atrium size is normal. Mild aortic valve sclerosis. No aortic regurgitation is present. There is no aortic valvular stenosis. The mitral valve is normal in structure. Mild mitral regurgitation. The tricuspid valve is normal in structure. Mild tricuspid regurgitation. IVC is normal in size and collapses >50% with inspiration. There is no pericardial effusion. There is normal LV segmental wall motion. <ELECTRONICALLY SIGNED> By: Jonathan Neri MD, FACC 08/21/20 121 12 12 Jonathan Neri MD, FACC /INF
== END ==
LOC: M.CRD 10:00
PROVIDERS: ATTEND Internal Medicine
DX: I08.3 Combined rheumatic disorders of mitral, aortic and tricuspid valves (principal); I25.10 Atherosclerotic heart disease of native coronary artery without angina pectoris; I10 Essential (primary) hypertension

== ENCOUNTER 2020-11-14 23:34 | Emergency (ER) | payer MEDICARE ==
[~2020-11-14] VITALS: Ht 160 cm; Wt 77.1 kg
[2020-11-15 00:04] LABS: ABSOLUTE BASOPHILS 0.1 thou/uL (0.0-0.2); ABSOLUTE EOSINOPHILS 0.3 thou/uL (0.0-0.7); ABSOLUTE LYMPHOCYTES 1.5 thou/uL (0.8-5.3); ABSOLUTE MONOCYTES 0.5 thou/uL (0.0-1.2); ABSOLUTE NEUTROPHILS 3.6 thou/uL (1.6-8.1); BASOPHILS 1.3 %; EOSINOPHILS 4.9 %; HEMATOCRIT 35.5 % (37.0-47.0); LYMPHOCYTES 25.5 %; MCH 32.3 pg (26.0-34.0); MCHC 33.8 g/dL (28.0-37.0); MCV 95.5 fL (80.0-100.0); MONOCYTES 9.1 %; MPV 7.4 fl. (7.2-11.1); NUCLEATED RBCS 0 /100WBC; PLATELET COUNT* 286 thou/uL (150-400); POLYS 59.2 %; RBC 3.71 mil/uL (4.20-5.00); RDW-CV 13.4 % (10.5-14.5)
[2020-11-15] MEDS ORDERED: ZPAK PO (00:10)
[2020-11-15] MEDS ORDERED: PREDNISONE 20 M20 M1 PO (00:10)
[2020-11-15 00:22] LABS: CALCIUM 9.2 mg/dL (8.5-10.1); CREATININE 0.8 mg/dL (0.6-1.3); POTASSIUM 3.7 mmol/L (3.5-5.1)
[2020-11-15 00:24] LABS: APTT 23.1 Seconds (25.0-31.3); PROTIME 10.3 Seconds (9.20-11.50)
[2020-11-15 00:32] LABS: ALBUMIN 3.9 g/dL (3.4-5.0); MAGNESIUM 2.1 mg/dL (1.8-2.4); TOTAL BILIRUBIN 0.2 mg/dL (<0.1-1.0); TOTAL PROTEIN 6.6 g/dL (6.4-8.2)
[2020-11-15 00:50] VITALS: BP 114/52
--- NOTE | 2020-11-15 10:46 | EKG ---
[place] [address] ELECTROCARDIOGRAM REPORT Name: TRENTON CONNER JO Room: 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: : 1940 Requested By: Rico Martinez Order Number: [id number] MD: Abraham Kwon Measurements Intervals [place] Rate: 77 P: 69 [place]: 150 QRS: 83 QRSD: 139 T: -17 QT: 387 QTc: 438 Interpretive Statements Sinus rhythm Right bundle branch block Nonspecific repol abnormality, lateral leads Compared to ECG 11/27/2019 09:40:13 no change Electronically Signed On 11-15-2020 10:46:37 KNOCKOUT MACHINE OPERATOR by Abraham Kwon [email or web address] <ELECTRONICALLY SIGNED> By: Abraham Kwon MD, FAC 11/15/20 1046 2341 2341 Abraham Kwon MD, [facility] /EPI
== END 2020-11-15 00:52 | disposition home or self-care (01) ==
LOC: M.ERS 23:34
PROVIDERS: Family Medicine
DX: R06.00 Dyspnea, unspecified (principal); Z20.828 Contact with and (suspected) exposure to other viral communicable diseases; E03.9 Hypothyroidism, unspecified; I10 Essential (primary) hypertension; J44.9 Chronic obstructive pulmonary disease, unspecified; I25.10 Atherosclerotic heart disease of native coronary artery without angina pectoris; K21.9 Gastro-esophageal reflux disease without esophagitis; Z87.891 Personal history of nicotine dependence; Z98.890 Other specified postprocedural states; Z90.710 Acquired absence of both cervix and uterus; Z87.01 Personal history of pneumonia (recurrent)

== ENCOUNTER 2021-12-17 05:53 | Emergency (ER) | payer MEDICARE ==
[~2021-12-17] VITALS: Ht 160 cm; Wt 74.8 kg
[2021-12-17 06:01] VITALS: BP 140/82
[2021-12-17] MEDS ORDERED: ABILIFY 5 MG TAB5 M1 PO (06:06)
[2021-12-17 06:09] LABS: URINE BILIRUBIN NEGATIVE (Negative); URINE BLOOD NEGATIVE (Negative); URINE CLARITY CLEAR; URINE COLOR YELLOW; URINE GLUCOSE-RANDOM NEGATIVE (Negative); URINE KETONES NEGATIVE (Negative); URINE LEUKOCYTES-REFLEX NEGATIVE (Negative); URINE NITRITE-REFLEX NEGATIVE (Negative); URINE PROTEIN NEGATIVE (Negative); URINE UROBILINOGEN 0.2 E.U./dl (0.2-1.0)
[2021-12-17] MEDS ORDERED: PYRIDIUM200 MG PO (06:27)
[2021-12-17] MEDS ORDERED: CEPHALEXIN500 MG PO (06:27)
== END 2021-12-17 06:43 | disposition home or self-care (01) ==
LOC: M.ERS 05:53
PROVIDERS: Personal Emergency Response Attendant
DX: R30.0 Dysuria (principal); R10.30 Lower abdominal pain, unspecified; M54.50 Low back pain, unspecified; R35.0 Frequency of micturition; I10 Essential (primary) hypertension; E03.9 Hypothyroidism, unspecified; J44.9 Chronic obstructive pulmonary disease, unspecified; I25.10 Atherosclerotic heart disease of native coronary artery without angina pectoris; K21.9 Gastro-esophageal reflux disease without esophagitis; F41.9 Anxiety disorder, unspecified; Z90.710 Acquired absence of both cervix and uterus; Z98.890 Other specified postprocedural states; Z79.82 Long term (current) use of aspirin; Z79.899 Other long term (current) drug therapy; Z87.891 Personal history of nicotine dependence